=== PATIENT | female | born 1985 | race Caucasian/White ===

== ENCOUNTER 2020-12-05 15:10 | Emergency (ER) | payer MEDICAID, SELFPAY ==
[~2020-12-05] VITALS: Ht 165.1 cm; Wt 78.3 kg
[~2020-12-05 15:10] MED LIST: CIPR-249 PO; CLON-412 PO; DIFL150T PO; VIST25CA PO; ZOFR4TAB14 PO
[2020-12-05 15:11] VITALS: BP 162/93
[2020-12-05] MEDS ORDERED: INDO50CA91 PO (15:33)
== END 2020-12-05 18:33 | disposition left against medical advice (07) ==
LOC: M ED 15:10
DX: Z53.21 Procedure and treatment not carried out due to patient leaving prior to being seen by health care provider (principal)

== ENCOUNTER 2021-05-22 01:24 | Emergency (ER) | payer SELFPAY ==
[~2021-05-22] VITALS: Ht 165.1 cm; Wt 72.7 kg
[~2021-05-22 01:24] MED LIST changes: +INDO50CA91 PO
[2021-05-22 01:30] VITALS: BP 140/83
== END 2021-05-22 04:00 | disposition left against medical advice (07) ==
LOC: M ED 01:24
DX: Z53.21 Procedure and treatment not carried out due to patient leaving prior to being seen by health care provider (principal)

== ENCOUNTER → 2021-08-31 | Outpatient (CLI) | payer MEDICAID, OTHER ==
[2021-08-31 16:26] LABS: HEMATOCRIT 35.6 % (36.0-47.0); HEMOGLOBIN 12.5 g/dl (12.0-15.5); INR 0.94; MEAN CORPUSCULAR HEMOGLOBIN 33.8 pg (27.0-33.0); MEAN CORPUSCULAR HGB CONC 35.1 g/dl (32.0-36.5); MEAN CORPUSCULAR VOLUME 96.2 fl (80.0-96.0); PLATELET COUNT, AUTOMATED 312 10^3/uL (150-450); WHITE BLOOD COUNT 6.9 10^3/uL (4.0-10.0)
[2021-08-31 17:16] LABS: ALBUMIN 3.4 GM/DL (3.2-5.2); ALT/SGPT 65 U/L (12-78); BILIRUBIN,TOTAL 0.3 MG/DL (0.2-1.0); BLOOD UREA NITROGEN 13 MG/DL (7-18); CALCIUM LEVEL 8.7 MG/DL (8.5-10.1); CARBON DIOXIDE LEVEL 24 MEQ/L (21-32); CHLORIDE LEVEL 107 MEQ/L (98-107); CREATININE FOR GFR 0.81 MG/DL (0.55-1.30); GLOMERULAR FILTRATION RATE > 60.0 (>60); GLUCOSE, FASTING 121 MG/DL (70-100); HEPATITIS B SURFACE ANTIBODY NEGATIVE (POSITIVE); POTASSIUM SERUM 3.9 MEQ/L (3.5-5.1); SODIUM LEVEL 139 MEQ/L (136-145); TOTAL PROTEIN 7.4 GM/DL (6.4-8.2)
[2021-08-31 17:31] LABS: HEPATITIS B CORE ANTIBODY IGM NEGATIVE (NEGATIVE)
[2021-08-31 17:32] LABS: HIV 1&2 SCREEN CENTAUR NEGATIVE (NEGATIVE)
== END ==
LOC: M LAB 14:28
PROVIDERS: ATTEND Nurse Practitioner Family
DX: B18.2 Chronic viral hepatitis C (principal)

== ENCOUNTER 2021-11-24 17:30 | Emergency (ER) | payer OTHER ==
[~2021-11-24] VITALS: Ht 165.1 cm; Wt 77.3 kg
[2021-11-24 17:50] VITALS: BP 132/85
[2021-11-24] MEDS ORDERED: VENL37.598 PO (17:53)
[2021-11-24] MEDS ORDERED: GABA-282 PO (17:53)
[2021-11-24] MEDS ORDERED: BOOSTRIX/ADACEL VACCINE (DIPHTH/PERTUSS/ACELL/TETANUS) 0.5ML SYR IM ONE (19:20)
== END 2021-11-24 19:34 | disposition home or self-care (01) ==
LOC: M ED 17:30
DX: S01.01XA Laceration without foreign body of scalp, initial encounter (principal); S20.219A Contusion of unspecified front wall of thorax, initial encounter; S40.012A Contusion of left shoulder, initial encounter; S19.9XXA Unspecified injury of neck, initial encounter; Y04.8XXA Assault by other bodily force, initial encounter; Y99.0 Civilian activity done for income or pay; F41.9 Anxiety disorder, unspecified; Z86.19 Personal history of other infectious and parasitic diseases; F17.200 Nicotine dependence, unspecified, uncomplicated; Z91.040 Latex allergy status

== ENCOUNTER → 2021-12-21 | Outpatient (CLI) | payer OTHER ==
[~2021-12-21] MED LIST changes: +GABA-282 PO; +VENL37.598 PO
[2021-12-24 17:07] LABS: HEPATITIS C QUANTITATION 10900 IU/mL (.)
== END ==
LOC: M LAB 14:04
PROVIDERS: ATTEND Nurse Practitioner Family
DX: B18.2 Chronic viral hepatitis C (principal)

== ENCOUNTER 2022-01-11 10:47 | Emergency (ER) | payer OTHER ==
[~2022-01-11] VITALS: Ht 165.1 cm; Wt 77.3 kg
[2022-01-11] MEDS ORDERED: ONDA4TAB6 (10:57)
[2022-01-11] MEDS ORDERED: BUPR1FIL (10:57)
[2022-01-11 11:38] LABS: BASO % 0.5 % (0.0-1.0); EOS # 0.1 10^3/uL (0.0-0.5); EOS % 1.6 % (0.0-3.0); HEMATOCRIT 36.8 % (36.0-47.0); HEMOGLOBIN 12.1 g/dl (12.0-15.5); LYMPH # 1.8 10^3/uL (1.5-5.0); LYMPH % 29.8 % (24.0-44.0); MEAN CORPUSCULAR HEMOGLOBIN 32.3 pg (27.0-33.0); MEAN CORPUSCULAR HGB CONC 32.9 g/dl (32.0-36.5); MEAN CORPUSCULAR VOLUME 98.1 fl (80.0-96.0); MONO # 0.5 10^3/uL (0.0-0.8); NEUTROPHILS # 3.7 10^3/uL (1.5-8.5); NEUTROPHILS % 59.9 % (36.0-66.0); PLATELET COUNT, AUTOMATED 432 10^3/uL (150-450); RED BLOOD COUNT 3.75 10^6/uL (4.00-5.40); WHITE BLOOD COUNT 6.1 10^3/uL (4.0-10.0)
[2022-01-11 12:05] LABS: ERYTHROCYTE SEDIMENTATION RATE 28 mm/hr (0-20)
[2022-01-11 12:24] LABS: BLOOD UREA NITROGEN 13 MG/DL (7-18); C REACTIVE PROTEIN QUANTITATIV 0.33 MG/DL (0.00-0.30); CALCIUM LEVEL 9.7 MG/DL (8.5-10.1); CARBON DIOXIDE LEVEL 28 MEQ/L (21-32); CHLORIDE LEVEL 104 MEQ/L (98-107); CREATININE FOR GFR 0.69 MG/DL (0.55-1.30); GLOMERULAR FILTRATION RATE > 60.0 (>60); GLUCOSE, FASTING 119 MG/DL (70-100); SODIUM LEVEL 137 MEQ/L (136-145)
[2022-01-11] MEDS ORDERED: SULF1TAB23 PO (14:32)
[2022-01-11 14:34] LABS: URINE PREG TEST NEGATIVE (NEGATIVE)
[2022-01-11] MEDS ORDERED: PHENAZOPYRIDINE 100 MG TAB PO ONE (14:40)
[2022-01-11] MEDS ORDERED: BACTRIM 160MG/800MG DS TAB PO ONE (14:40)
[2022-01-11 14:49] VITALS: BP 144/92
== END 2022-01-11 14:59 | disposition home or self-care (01) ==
LOC: M ED 10:47
DX: N39.0 Urinary tract infection, site not specified (principal); F19.10 Other psychoactive substance abuse, uncomplicated; I82.611 Acute embolism and thrombosis of superficial veins of right upper extremity; L03.114 Cellulitis of left upper limb; L03.116 Cellulitis of left lower limb; L03.113 Cellulitis of right upper limb; Z86.16 Personal history of COVID-19; Z79.899 Other long term (current) drug therapy; Z91.040 Latex allergy status

== ENCOUNTER → 2022-06-26 | Outpatient (REF) | payer OTHER ==
[~2022-06-26] MED LIST changes: +BUPR1FIL; +ONDA4TAB6; +SULF1TAB23 PO
[2022-06-26 18:00] LABS: BASO % 0.5 % (0.0-1.0); EOS % 0.5 % (0.0-3.0); HEMATOCRIT 36.3 % (36.0-47.0); HEMOGLOBIN 12.2 g/dl (12.0-15.5); LYMPH # 2.1 10^3/uL (1.5-5.0); LYMPH % 25.5 % (24.0-44.0); MEAN CORPUSCULAR HGB CONC 33.6 g/dl (32.0-36.5); MEAN CORPUSCULAR VOLUME 98.1 fl (80.0-96.0); MONO # 0.6 10^3/uL (0.0-0.8); MONO % 7.4 % (2.0-8.0); NEUTROPHILS # 5.4 10^3/uL (1.5-8.5); NEUTROPHILS % 65.9 % (36.0-66.0); PLATELET COUNT, AUTOMATED 434 10^3/uL (150-450); WHITE BLOOD COUNT 8.3 10^3/uL (4.0-10.0)
[2022-06-26 18:09] LABS: LIPASE 16 U/L (12-53)
[2022-06-26 18:10] LABS: AMYLASE 24 U/L (30-118)
[2022-06-26 18:18] LABS: ALBUMIN 3.9 G/DL (3.2-5.2); ALKALINE PHOSPHATASE 72 U/L (46-116); ALT/SGPT 72 U/L (7.0-40); AST/SGOT 74 U/L (<34); BILIRUBIN,TOTAL 0.9 MG/DL (0.3-1.2); BLOOD UREA NITROGEN 18 MG/DL (9-23); CALCIUM LEVEL 9.2 MG/DL (8.5-10.1); CARBON DIOXIDE LEVEL 24 MMOL/L (20-31); CHLORIDE LEVEL 103 MMOL/L (98-107); CREATININE FOR GFR 0.57 MG/DL (0.55-1.30); GLOMERULAR FILTRATION RATE > 60.0 (>60); GLUCOSE, FASTING 97 MG/DL (60-100); SODIUM LEVEL 135 MMOL/L (136-145); TOTAL PROTEIN 7.7 G/DL (5.7-8.2)
[2022-06-28 13:08] LABS: HEPATITIS C QUANTITATION 631000 IU/mL (.)
== END ==
LOC: M LAB REF 16:48
PROVIDERS: ATTEND Family Medicine Addiction Medicine
DX: R10.9 Unspecified abdominal pain (principal); Z86.19 Personal history of other infectious and parasitic diseases

== ENCOUNTER 2022-07-01 15:26 | Emergency (ER) | payer OTHER ==
[~2022-07-01] VITALS: Ht 165.1 cm; Wt 86.4 kg
[2022-07-01 15:27] VITALS: BP 159/91
== END 2022-07-01 18:18 | disposition home or self-care (01) ==
LOC: M ED 15:26
DX: S86.112A Strain of other muscle(s) and tendon(s) of posterior muscle group at lower leg level, left leg, initial encounter (principal); X50.1XXA Overexertion from prolonged static or awkward postures, initial encounter; Y92.099 Unspecified place in other non-institutional residence as the place of occurrence of the external cause; Y93.39 Activity, other involving climbing, rappelling and jumping off; F41.9 Anxiety disorder, unspecified; F17.200 Nicotine dependence, unspecified, uncomplicated

== ENCOUNTER 2022-08-10 16:38 | Emergency (ER) | payer OTHER ==
[~2022-08-10] VITALS: Ht 165.1 cm; Wt 86.4 kg
[2022-08-10 18:05] LABS: BASO % 0.4 % (0.0-1.0); EOS # 0.2 10^3/uL (0.0-0.5); EOS % 1.8 % (0.0-3.0); HEMATOCRIT 36.7 % (36.0-47.0); HEMOGLOBIN 12.6 g/dl (12.0-15.5); LYMPH # 2.1 10^3/uL (1.5-5.0); LYMPH % 25.4 % (24.0-44.0); MEAN CORPUSCULAR HEMOGLOBIN 32.6 pg (27.0-33.0); MEAN CORPUSCULAR HGB CONC 34.3 g/dl (32.0-36.5); MEAN CORPUSCULAR VOLUME 94.8 fl (80.0-96.0); MONO # 0.4 10^3/uL (0.0-0.8); MONO % 5.1 % (2.0-8.0); NEUTROPHILS # 5.6 10^3/uL (1.5-8.5); NEUTROPHILS % 67.1 % (36.0-66.0); PLATELET COUNT, AUTOMATED 342 10^3/uL (150-450); RED BLOOD COUNT 3.87 10^6/uL (4.00-5.40); WHITE BLOOD COUNT 8.4 10^3/uL (4.0-10.0)
[2022-08-10 18:21] LABS: BLOOD UREA NITROGEN 9 MG/DL (9-23); CALCIUM LEVEL 8.8 MG/DL (8.5-10.1); CARBON DIOXIDE LEVEL 27 MMOL/L (20-31); CHLORIDE LEVEL 105 MMOL/L (98-107); CREATININE FOR GFR 0.54 MG/DL (0.55-1.30); GLOMERULAR FILTRATION RATE > 60.0 (>60); GLUCOSE, FASTING 75 MG/DL (60-100); POTASSIUM SERUM 4.2 MMOL/L (3.5-5.1); SODIUM LEVEL 137 MMOL/L (136-145)
[2022-08-10 18:36] LABS: HCG, SERUM QUANTITATIVE 7313.6 MIU/ML (<4.2)
[2022-08-10] MEDS ORDERED: RHOGAM 300MCG (1500IU) INJ IM ONE (20:00)
[2022-08-10 21:15] VITALS: BP 134/78
== END 2022-08-10 21:17 | disposition home or self-care (01) ==
LOC: M ED 16:38
DX: O20.0 Threatened abortion (principal); F17.200 Nicotine dependence, unspecified, uncomplicated; F19.10 Other psychoactive substance abuse, uncomplicated; Z91.040 Latex allergy status
CPT/HCPCS: 76801; 76817; 80048; 81001; 84702; 85025; 86850; 86900; 86901; 87086; 93976; 96372; 99283; J2790

== ENCOUNTER 2023-01-23 22:48 | Emergency (ER) | payer OTHER ==
[~2023-01-23] VITALS: Ht 167.6 cm; Wt 86.0 kg
[2023-01-24 01:49] LABS: BASO % 0.4 % (0.0-1.0); EOS # 0.2 10^3/uL (0.0-0.5); EOS % 1.8 % (0.0-3.0); HEMATOCRIT 28.8 % (36.0-47.0); HEMOGLOBIN 9.9 g/dl (12.0-15.5); LYMPH % 31.9 % (24.0-44.0); MEAN CORPUSCULAR HEMOGLOBIN 32.8 pg (27.0-33.0); MEAN CORPUSCULAR HGB CONC 34.4 g/dl (32.0-36.5); MEAN CORPUSCULAR VOLUME 95.4 fl (80.0-96.0); MONO # 0.7 10^3/uL (0.0-0.8); MONO % 7.7 % (2.0-8.0); NEUTROPHILS # 5.5 10^3/uL (1.5-8.5); NEUTROPHILS % 57.9 % (36.0-66.0); PLATELET COUNT, AUTOMATED 330 10^3/uL (150-450); RED BLOOD COUNT 3.02 10^6/uL (4.00-5.40); WHITE BLOOD COUNT 9.5 10^3/uL (4.0-10.0)
[2023-01-24 02:09] LABS: BLOOD UREA NITROGEN 14 MG/DL (9-23); CALCIUM LEVEL 8.7 MG/DL (8.5-10.1); CARBON DIOXIDE LEVEL 21 MMOL/L (20-31); CHLORIDE LEVEL 106 MMOL/L (98-107); CREATININE FOR GFR 0.55 MG/DL (0.55-1.30); GLOMERULAR FILTRATION RATE > 60.0 (>60); GLUCOSE, FASTING 103 MG/DL (60-100); POTASSIUM SERUM 4.8 MMOL/L (3.5-5.1); SODIUM LEVEL 137 MMOL/L (136-145)
[2023-01-24] MEDS ORDERED: NS 1,000 ML IV ONE (02:40)
[2023-01-24] MEDS ORDERED: RHOGAM 300MCG (1500IU) INJ IM ONE (02:45)
[2023-01-24] MEDS ORDERED: MORPHINE 4 MG/ML 1ML VIAL IV PRN (02:55)
[2023-01-24] MEDS ORDERED: ONDANSETRON 4MG 2ML VIAL IV ONE (02:55)
[2023-01-24 03:07] LABS: HCG, SERUM QUANTITATIVE 10483.2 MIU/ML (<4.2)
[2023-01-24 04:12] LABS: RSV AMPLIFICATION NEGATIVE (NEGATIVE)
[2023-01-24 05:57] VITALS: BP 109/68; TEMP 98; O2SAT 98
[2023-01-24 06:14] VITALS: BP 115/72; TEMP 98; O2SAT 98
[2023-01-24 06:50] VITALS: BP 126/76; TEMP 98.6
[2023-01-24 08:00] VITALS: BP 120/76; TEMP 97.4; O2SAT 98
[2023-01-24 09:53] LABS: HEMATOCRIT 33.3 % (36.0-47.0); HEMOGLOBIN 11.4 g/dl (12.0-15.5)
[2023-01-24] MEDS ORDERED: KETOROLAC 30 MG/ML 1ML VIAL IV ONE (10:05)
[2023-01-24] MEDS ORDERED: IBUP-1114 PO (10:09)
[2023-01-24 10:17] VITALS: BP 122/78; TEMP 97.2; O2SAT 99
== END 2023-01-24 10:36 | disposition home or self-care (01) ==
LOC: M ED 22:48 → EDBD 22:48 → M ED 01-24 10:36
DX: O03.4 Incomplete spontaneous abortion without complication (principal); D64.9 Anemia, unspecified; F17.200 Nicotine dependence, unspecified, uncomplicated; F19.10 Other psychoactive substance abuse, uncomplicated; Z79.1 Long term (current) use of non-steroidal anti-inflammatories (NSAID); Z91.040 Latex allergy status
CPT/HCPCS: 36430; 76801; 80048; 84702; 85014; 85018; 85025; 86850; 86900; 86901; 86920; 87631; 96372; 96374; 96375; 99285; J1885; J2405; J2790; P9016

== ENCOUNTER 2023-12-23 01:48 | Emergency (ER) | payer OTHER ==
[~2023-12-23 01:48] MED LIST changes: +IBUP-1114 PO; +ONDA-282; -ONDA4TAB6
[2023-12-23 02:21] LABS: BASO % 0.3 % (0.0-1.0); EOS # 0.1 10^3/uL (0.0-0.5); EOS % 0.4 % (0.0-3.0); HEMATOCRIT 33.6 % (36.0-47.0); HEMOGLOBIN 11.6 g/dl (12.0-15.5); LYMPH # 1.8 10^3/uL (1.5-5.0); LYMPH % 15.9 % (24.0-44.0); MEAN CORPUSCULAR HEMOGLOBIN 30.8 pg (27.0-33.0); MEAN CORPUSCULAR HGB CONC 34.5 g/dl (32.0-36.5); MEAN CORPUSCULAR VOLUME 89.1 fl (80.0-96.0); MONO # 0.7 10^3/uL (0.0-0.8); MONO % 6.4 % (2.0-8.0); NEUTROPHILS # 8.9 10^3/uL (1.5-8.5); NEUTROPHILS % 76.7 % (36.0-66.0); PLATELET COUNT, AUTOMATED 349 10^3/uL (150-450); RED BLOOD COUNT 3.77 10^6/uL (4.00-5.40); WHITE BLOOD COUNT 11.6 10^3/uL (4.0-10.0)
[2023-12-23 02:49] LABS: BARBITURATES URINE NEGATIVE (NEGATIVE); BENZODIAZEPINES URINE NEGATIVE (NEGATIVE); CANNABINOIDS URINE NEGATIVE (NEGATIVE); PHENCYCLIDINE URINE NEGATIVE (NEGATIVE)
[2023-12-23 02:51] LABS: ETHYL ALCOHOL (ETHANOL) 0.005 % (0.000-0.010)
[2023-12-23] MEDS: ACETAMINOPHEN *IV* 1,000 MG in IV 1 EA IV ONE (02:51)
[2023-12-23] MEDS: NS 1,000 ML IV ONE (02:51)
[2023-12-23 02:53] LABS: BLOOD UREA NITROGEN 14 MG/DL (9-23); CALCIUM LEVEL 8.8 MG/DL (8.5-10.1); CARBON DIOXIDE LEVEL 23 MMOL/L (20-31); CHLORIDE LEVEL 105 MMOL/L (98-107); CK-MB VALUE MASS < 1.0 NG/ML (<3.6); CPK CREATINE PHOSPHOKINASE 81 U/L (34-145); CREATININE FOR GFR 0.71 MG/DL (0.55-1.30); GLOMERULAR FILTRATION RATE > 60.0 (>60); GLUCOSE, FASTING 115 MG/DL (60-100); MB/CK RELATIVE INDEX 1.23 (< OR =4); POTASSIUM SERUM 3.3 MMOL/L (3.5-5.1); SODIUM LEVEL 132 MMOL/L (136-145)
[2023-12-23 03:10] LABS: AMPHETAMINES LEVEL URINE POSITIVE (NEGATIVE); COCAINE METABOLITE URINE POSITIVE (NEGATIVE); METHADONE URINE POSITIVE (NEGATIVE); OPIATES URINE POSITIVE (NEGATIVE)
[2023-12-23] MEDS: KETOROLAC 30 MG/ML 1ML VIAL IV ONE (03:38)
[2023-12-23] MEDS: cefTRIAXone SOD 1 GM in D5W MINI-BAG PLUS 50 ML IV ONE (03:48)
[2023-12-23 04:23] LABS: CK-MB VALUE MASS < 1.0 NG/ML (<3.6)
[2023-12-23 04:25] LABS: CPK CREATINE PHOSPHOKINASE 81 U/L (34-145); MB/CK RELATIVE INDEX 1.23 (< OR =4)
[2023-12-23 05:15] VITALS: BP 123/79; TEMP 98.2; O2SAT 96
[2023-12-23] MEDS ORDERED: DIFL200T PO (05:19)
[2023-12-23] MEDS ORDERED: CIPR-250 PO (05:19)
== END 2023-12-23 05:31 | disposition home or self-care (01) ==
LOC: M ED 01:48
DX: R07.9 Chest pain, unspecified (principal); N39.0 Urinary tract infection, site not specified; F19.10 Other psychoactive substance abuse, uncomplicated; R00.0 Tachycardia, unspecified; Z91.040 Latex allergy status; Z79.2 Long term (current) use of antibiotics; Z79.1 Long term (current) use of non-steroidal anti-inflammatories (NSAID); Z79.899 Other long term (current) drug therapy
CPT/HCPCS: 71045; 80048; 80307; 81001; 82077; 82550; 82553; 84484; 85025; 87088; 87186; 87486; 87581; 87633; 87798; 93005; 93041; 94760; 96365; 96375; 99285; J0131; J0696; J1885

== ENCOUNTER 2023-12-26 00:08 | Inpatient (IN) | payer OTHER ==
[~2023-12-26] VITALS: Ht 167.6 cm; Wt 78.0 kg
[~2023-12-26 00:08] MED LIST changes: +CIPR-250 PO; +DIFL200T PO
[2023-12-26 00:50] LABS: BASO % 0.3 % (0.0-1.0); HEMATOCRIT 32.2 % (36.0-47.0); HEMOGLOBIN 11.3 g/dl (12.0-15.5); LYMPH # 1.2 10^3/uL (1.5-5.0); LYMPH % 11.2 % (24.0-44.0); MEAN CORPUSCULAR HEMOGLOBIN 31.5 pg (27.0-33.0); MEAN CORPUSCULAR HGB CONC 35.1 g/dl (32.0-36.5); MEAN CORPUSCULAR VOLUME 89.7 fl (80.0-96.0); NEUTROPHILS # 8.7 10^3/uL (1.5-8.5); PLATELET COUNT, AUTOMATED 285 10^3/uL (150-450); RED BLOOD COUNT 3.59 10^6/uL (4.00-5.40)
[2023-12-26 01:06] LABS: INR 1.15; PARTIAL THROMBOPLASTIN TIME 31.1 SECONDS (24.8-34.2); PROTHROMBIN TIME 14.3 SECONDS (12.5-14.5)
[2023-12-26 01:14] LABS: AMYLASE 24 U/L (30-118)
[2023-12-26 01:15] LABS: ALBUMIN 2.9 G/DL (3.2-5.2); ALKALINE PHOSPHATASE 73 U/L (46-116); ALT/SGPT 15 U/L (7.0-40); AST/SGOT 12 U/L (<34); BILIRUBIN,DIRECT 0.2 MG/DL (<0.4); BILIRUBIN,TOTAL 0.5 MG/DL (0.3-1.2); BLOOD UREA NITROGEN 8 MG/DL (9-23); CALCIUM LEVEL 8.5 MG/DL (8.5-10.1); CARBON DIOXIDE LEVEL 25 MMOL/L (20-31); CHLORIDE LEVEL 105 MMOL/L (98-107); CREATININE FOR GFR 0.67 MG/DL (0.55-1.30); GLOMERULAR FILTRATION RATE > 60.0 (>60); GLUCOSE, FASTING 132 MG/DL (60-100); POTASSIUM SERUM 3.2 MMOL/L (3.5-5.1); SODIUM LEVEL 135 MMOL/L (136-145); TOTAL PROTEIN 6.8 G/DL (5.7-8.2)
[2023-12-26 01:22] LABS: PROCALCITONIN 0.22 ng/ml
[2023-12-26 01:29] LABS: AMORPHOUS SEDIMENT SMALL (NEGATIVE); APPEARANCE, URINE CLOUDY (CLEAR); BACTERIA, URINE AUTO NEGATIVE (NEGATIVE); BILIRUBIN, URINE AUTO NEGATIVE (NEGATIVE); BLOOD, URINE BLOOD NEGATIVE (NEGATIVE); COLOR, URINE AMBER (YELLOW); GLUCOSE, URINE (UA) AUTO NEGATIVE (NEGATIVE); KETONE, URINE AUTO TRACE mg/dL (NEGATIVE); LEUKOCYTE ESTERASE, URINE AUTO TRACE (NEGATIVE); MUCUS, URINE LARGE (NEGATIVE); NITRITE, URINE AUTO NEGATIVE (NEGATIVE); PROTEIN, URINE AUTO 1+ mg/dL (NEGATIVE); RBC, URINE AUTO 0 /HPF (0-3); SPECIFIC GRAVITY URINE AUTO 1.018 (1.002-1.035); SQUAMOUS EPITHELIAL CELL UR AU 24 /HPF (0-6); WBC, URINE AUTO 15 /HPF (0-3)
[2023-12-26 01:32] LABS: LIPASE 18 U/L (12-53)
[2023-12-26 01:33] LABS: CK-MB VALUE MASS < 1.0 NG/ML (<3.6)
[2023-12-26 01:34] LABS: CPK CREATINE PHOSPHOKINASE 54 U/L (34-145); MB/CK RELATIVE INDEX 1.85 (< OR =4)
[2023-12-26] MEDS ORDERED: ISOVUE-370 76% 100ML VIAL As Ordered ONE (05:49)
[2023-12-26] MEDS: PIPERACILLIN/TAZOBACTAM SOD 4.5 GM in D5W MINI-BAG PLUS 50 ML IV ONE (05:57)
[2023-12-26] MEDS: ACETAMINOPHEN TAB 650MG DOSE (2X325MG) PO ONE (07:28)
[2023-12-26] MEDS: KETOROLAC 30 MG/ML 1ML VIAL IV ONE (09:14)
[2023-12-26] MEDS ORDERED: BUPR8SUB SL (10:08)
[2023-12-26] MEDS ORDERED: IBUP-1720 PO (10:08)
[2023-12-26] MEDS ORDERED: NALO4SPR3 (10:08)
[2023-12-26] MEDS ORDERED: HOME MED LIST COMPLETE! XX SCH (10:10)
[2023-12-26] MEDS: POTASSIUM CHLORIDE 10MEQ SR TABLET PO ONE (10:41)
[2023-12-26] MEDS ORDERED: ACETAMINOPHEN TAB 650MG DOSE (2X325MG) PO PRN (13:35)
[2023-12-26] MEDS: PIPERACILLIN/TAZOBACTAM SOD 4.5 GM in D5W MINI-BAG PLUS 50 ML IV SCH (15:15)
[2023-12-26] MEDS: BUPRENORPHINE HCL 8MG SUBINGUAL TABLET SL SCH (16:00)
[2023-12-26] MEDS: VANCOMYCIN 1,500 MG/300 ML IV BAG *LOAD IV ONE (16:54)
[2023-12-26] MEDS: KETOROLAC 30 MG/ML 1ML VIAL IV PRN (16:56)
[2023-12-26 17:20] VITALS: BP 117/78; TEMP 97.9; O2SAT 98
[2023-12-26 21:09] VITALS: BP 122/76; TEMP 98.2; O2SAT 98
[2023-12-27] MEDS: METHOCARBAMOL 1,000 MG/10 ML VIAL IV ONE (00:15)
[2023-12-27] MEDS: ACETAMINOPHEN *IV* 1,000 MG in IV 1 EA IV ONE (00:15)
[2023-12-27] MEDS: VANCOMYCIN HCL 1,000 MG, VIAL MATE ADAPTER 1 EACH in D5W 250 ML IV SCH (01:00)
[2023-12-27 04:16] VITALS: BP 129/76; TEMP 97.7; O2SAT 96
[2023-12-27] MEDS: RIVAROXABAN 10MG TAB (XARELTO) PO SCH (08:38)
[2023-12-27] MEDS: carisoprodoL 350 MG TAB PO ONE (08:38)
[2023-12-27 12:00] VITALS: BP 150/99; TEMP 98.2; O2SAT 98
[2023-12-27 13:33] LABS: BASO # 0.1 10^3/uL (0.0-0.2); BASO % 0.5 % (0.0-1.0); EOS % 0.4 % (0.0-3.0); HEMATOCRIT 31.8 % (36.0-47.0); HEMOGLOBIN 10.9 g/dl (12.0-15.5); LYMPH # 1.3 10^3/uL (1.5-5.0); LYMPH % 11.7 % (24.0-44.0); MEAN CORPUSCULAR HGB CONC 34.3 g/dl (32.0-36.5); MEAN CORPUSCULAR VOLUME 90.3 fl (80.0-96.0); MONO # 1.2 10^3/uL (0.0-0.8); MONO % 10.5 % (2.0-8.0); NEUTROPHILS # 8.5 10^3/uL (1.5-8.5); NEUTROPHILS % 76.4 % (36.0-66.0); PLATELET COUNT, AUTOMATED 302 10^3/uL (150-450); RED BLOOD COUNT 3.52 10^6/uL (4.00-5.40); WHITE BLOOD COUNT 11.1 10^3/uL (4.0-10.0)
[2023-12-27 14:04] LABS: BLOOD UREA NITROGEN 5 MG/DL (9-23); CALCIUM LEVEL 8.3 MG/DL (8.5-10.1); CARBON DIOXIDE LEVEL 24 MMOL/L (20-31); CHLORIDE LEVEL 107 MMOL/L (98-107); CREATININE FOR GFR 0.58 MG/DL (0.55-1.30); GLOMERULAR FILTRATION RATE > 60.0 (>60); GLUCOSE, FASTING 123 MG/DL (60-100); MAGNESIUM LEVEL 1.9 MG/DL (1.8-2.4); POTASSIUM SERUM 3.6 MMOL/L (3.5-5.1); SODIUM LEVEL 137 MMOL/L (136-145)
[2023-12-27 16:00] VITALS: BP 111/81; TEMP 97.5; O2SAT 100
[2023-12-27] MEDS: carisoprodoL 350 MG TAB PO SCH (16:12)
[2023-12-27] MEDS: VANCOMYCIN 1,250 MG/250 ML IV BAG *LOAD IV ONE (19:22)
[2023-12-27 21:06] VITALS: BP 128/85; TEMP 97.8; O2SAT 100
[2023-12-28 04:35] VITALS: BP 122/76; TEMP 98; O2SAT 100
[2023-12-28 08:45] LABS: BASO % 0.4 % (0.0-1.0); EOS # 0.1 10^3/uL (0.0-0.5); EOS % 0.8 % (0.0-3.0); HEMATOCRIT 30.9 % (36.0-47.0); HEMOGLOBIN 10.7 g/dl (12.0-15.5); LYMPH # 2.2 10^3/uL (1.5-5.0); LYMPH % 20.1 % (24.0-44.0); MEAN CORPUSCULAR HEMOGLOBIN 31.2 pg (27.0-33.0); MEAN CORPUSCULAR HGB CONC 34.6 g/dl (32.0-36.5); MEAN CORPUSCULAR VOLUME 90.1 fl (80.0-96.0); MONO % 8.7 % (2.0-8.0); NEUTROPHILS # 7.7 10^3/uL (1.5-8.5); NEUTROPHILS % 69.5 % (36.0-66.0); PLATELET COUNT, AUTOMATED 310 10^3/uL (150-450); RED BLOOD COUNT 3.43 10^6/uL (4.00-5.40); WHITE BLOOD COUNT 11.1 10^3/uL (4.0-10.0)
[2023-12-28 09:17] LABS: VANCOMYCIN LEVEL TROUGH 9.6 UG/ML (10.0-20.0)
[2023-12-28 09:18] LABS: BLOOD UREA NITROGEN 7 MG/DL (9-23); CALCIUM LEVEL 8.5 MG/DL (8.5-10.1); CARBON DIOXIDE LEVEL 24 MMOL/L (20-31); CHLORIDE LEVEL 109 MMOL/L (98-107); CREATININE FOR GFR 0.56 MG/DL (0.55-1.30); GLOMERULAR FILTRATION RATE > 60.0 (>60); GLUCOSE, FASTING 105 MG/DL (60-100); POTASSIUM SERUM 3.6 MMOL/L (3.5-5.1); SODIUM LEVEL 139 MMOL/L (136-145)
[2023-12-28 12:00] VITALS: BP 145/102; TEMP 97.5; O2SAT 98
[2023-12-28] MEDS: VANCOMYCIN 1,250 MG/250 ML IV BAG IV SCH (17:24)
[2023-12-28] MEDS ORDERED: CEFA500C2 PO (20:59)
[2023-12-28] MEDS ORDERED: SOMA350T PO (21:12)
== END 2023-12-28 18:14 | disposition left against medical advice (07) | DRG 344 ==
LOC: M ED 00:08 → M ED INP 13:34 → M MSPAV 17:24
PROVIDERS: ADMIT Internal Medicine Nephrology; ATTEND Internal Medicine Nephrology
DX: M00.852 Arthritis due to other bacteria, left hip (principal); I26.90 Septic pulmonary embolism without acute cor pulmonale; R78.81 Bacteremia; N39.0 Urinary tract infection, site not specified; B95.61 Methicillin susceptible Staphylococcus aureus infection as the cause of diseases classified elsewhere; F14.10 Cocaine abuse, uncomplicated; F15.10 Other stimulant abuse, uncomplicated; Z91.040 Latex allergy status; J44.9 Chronic obstructive pulmonary disease, unspecified; F41.9 Anxiety disorder, unspecified; B19.20 Unspecified viral hepatitis C without hepatic coma; F17.200 Nicotine dependence, unspecified, uncomplicated

== ENCOUNTER 2024-01-26 10:57 | Inpatient (IN) | payer OTHER ==
[~2024-01-26] VITALS: Ht 165.1 cm; Wt 81.9 kg
[~2024-01-26 10:57] MED LIST changes: +BUPR8SUB SL; +CEFA500C2 PO; +GABA-1172 PO; -GABA-282 PO; +IBUP-1720 PO; +NALO4SPR3; +SOMA350T PO
[2024-01-26] MEDS ORDERED: FLUC10TA PO (11:15)
[2024-01-26] MEDS ORDERED: CLON-412 PO (11:15)
[2024-01-26] MEDS ORDERED: CIPR250T3 PO (11:15)
[2024-01-26 13:38] LABS: VENOUS BASE EXCESS -2.7 (-2.0-2.0); VENOUS O2 SATURATION 89.1 % (60.0-80.0); VENOUS PARTIAL PRESSURE CO2 33.3 mmHg (38.0-50.0); VENOUS PARTIAL PRESSURE O2 57.5 mmHg (30.0-50.0); VENOUS PH 7.418 UNITS (7.330-7.430); VENOUS STANDARD HCO3 22.1 MMOL/L
[2024-01-26 13:44] LABS: BASO # 0.1 10^3/uL (0.0-0.2); BASO % 0.4 % (0.0-1.0); EOS # 0.1 10^3/uL (0.0-0.5); EOS % 0.9 % (0.0-3.0); HEMATOCRIT 35.8 % (36.0-47.0); HEMOGLOBIN 12.1 g/dl (12.0-15.5); LYMPH # 3.8 10^3/uL (1.5-5.0); LYMPH % 29.3 % (24.0-44.0); MEAN CORPUSCULAR HEMOGLOBIN 30.5 pg (27.0-33.0); MEAN CORPUSCULAR HGB CONC 33.8 g/dl (32.0-36.5); MEAN CORPUSCULAR VOLUME 90.2 fl (80.0-96.0); MONO # 0.6 10^3/uL (0.0-0.8); MONO % 4.9 % (2.0-8.0); NEUTROPHILS # 8.1 10^3/uL (1.5-8.5); NEUTROPHILS % 62.6 % (36.0-66.0); PLATELET COUNT, AUTOMATED 515 10^3/uL (150-450); RED BLOOD COUNT 3.97 10^6/uL (4.00-5.40); WHITE BLOOD COUNT 12.8 10^3/uL (4.0-10.0)
[2024-01-26 13:56] LABS: INR 0.95; PARTIAL THROMBOPLASTIN TIME 30.4 SECONDS (24.8-34.2)
[2024-01-26 13:58] LABS: APPEARANCE, URINE CLOUDY (CLEAR); BACTERIA, URINE AUTO 1+ (NEGATIVE); BILIRUBIN, URINE AUTO NEGATIVE (NEGATIVE); BLOOD, URINE BLOOD NEGATIVE (NEGATIVE); COLOR, URINE YELLOW (YELLOW); GLUCOSE, URINE (UA) AUTO NEGATIVE (NEGATIVE); KETONE, URINE AUTO NEGATIVE (NEGATIVE); LEUKOCYTE ESTERASE, URINE AUTO 2+ (NEGATIVE); MUCUS, URINE SMALL (NEGATIVE); NITRITE, URINE AUTO NEGATIVE (NEGATIVE); PROTEIN, URINE AUTO NEGATIVE (NEGATIVE); RBC, URINE AUTO 11 /HPF (0-3); SPECIFIC GRAVITY URINE AUTO 1.019 (1.002-1.035); SQUAMOUS EPITHELIAL CELL UR AU 8 /HPF (0-6); UROBILINOGEN, URINE AUTO 0.2 mg/dL (0.0-2.0); WBC, URINE AUTO 18 /HPF (0-3)
[2024-01-26 14:12] LABS: C REACTIVE PROTEIN QUANTITATIV < 0.40 MG/DL (<1.0)
[2024-01-26 14:13] LABS: AMYLASE 64 U/L (30-118)
[2024-01-26 14:25] LABS: PROCALCITONIN <0.04 ng/ml
[2024-01-26 14:26] LABS: ALBUMIN 3.3 G/DL (3.2-5.2); ALKALINE PHOSPHATASE 86 U/L (35-104); ALT/SGPT 28 U/L (7.0-40); AST/SGOT 38 U/L (<34); BILIRUBIN,DIRECT < 0.1 MG/DL (<0.4); BILIRUBIN,TOTAL 0.2 MG/DL (0.3-1.2); BLOOD UREA NITROGEN 16 MG/DL (9-23); CALCIUM LEVEL 9.4 MG/DL (8.5-10.1); CARBON DIOXIDE LEVEL 24 MMOL/L (20-31); CHLORIDE LEVEL 110 MMOL/L (98-107); CREATININE FOR GFR 0.63 MG/DL (0.55-1.30); GLOMERULAR FILTRATION RATE > 60.0 (>58); GLUCOSE, FASTING 83 MG/DL (60-100); POTASSIUM SERUM 5.1 MMOL/L (3.5-5.1); SODIUM LEVEL 140 MMOL/L (136-145); TOTAL PROTEIN 7.7 G/DL (5.7-8.2)
[2024-01-26] MEDS ORDERED: ISOVUE-370 76% 100ML VIAL As Ordered ONE (15:18)
[2024-01-26] MEDS: VANCOMYCIN/WATER FOR INJ (PEG) 1,500 MG in IV 1 EA IV ONE (17:03)
[2024-01-26] MEDS: ACETAMINOPHEN 500 MG TAB PO ONE (17:40)
[2024-01-26] MEDS ORDERED: ACET300T48 PO (18:22)
[2024-01-26] MEDS ORDERED: HOME MED LIST COMPLETE! XX SCH (18:25)
[2024-01-26] MEDS: MORPHINE 2 MG/ML 1ML VIAL IV ONE (22:34)
[2024-01-26] MEDS: ONDANSETRON 4MG 2ML VIAL IV ONE (22:34)
[2024-01-27 00:09] VITALS: BP 139/90; TEMP 98.1; O2SAT 96
[2024-01-27] MEDS: SCOPOLAMINE 1MG TRANSDERMAL PATCH TOP ONE (00:46)
[2024-01-27] MEDS: VANCOMYCIN 1,250 MG/250 ML IV BAG IV SCH (00:47)
[2024-01-27 04:29] VITALS: BP 158/87; TEMP 98.5; O2SAT 97
[2024-01-27 07:25] LABS: HEMATOCRIT 37.1 % (36.0-47.0); HEMOGLOBIN 12.7 g/dl (12.0-15.5); MEAN CORPUSCULAR HEMOGLOBIN 30.2 pg (27.0-33.0); MEAN CORPUSCULAR HGB CONC 34.2 g/dl (32.0-36.5); MEAN CORPUSCULAR VOLUME 88.1 fl (80.0-96.0); PLATELET COUNT, AUTOMATED 542 10^3/uL (150-450); RED BLOOD COUNT 4.21 10^6/uL (4.00-5.40); WHITE BLOOD COUNT 14.2 10^3/uL (4.0-10.0)
[2024-01-27] MEDS: ACETAMINOPHEN 325 MG TAB PO PRN (07:30)
[2024-01-27 07:51] LABS: ALBUMIN 3.5 G/DL (3.2-5.2); ALKALINE PHOSPHATASE 91 U/L (35-104); ALT/SGPT 27 U/L (7.0-40); AST/SGOT 10 U/L (<34); BILIRUBIN,TOTAL 0.4 MG/DL (0.3-1.2); BLOOD UREA NITROGEN 9 MG/DL (9-23); CALCIUM LEVEL 9.8 MG/DL (8.5-10.1); CARBON DIOXIDE LEVEL 22 MMOL/L (20-31); CHLORIDE LEVEL 107 MMOL/L (98-107); CREATININE FOR GFR 0.56 MG/DL (0.55-1.30); GLOMERULAR FILTRATION RATE > 60.0 (>58); GLUCOSE, FASTING 108 MG/DL (60-100); POTASSIUM SERUM 4.1 MMOL/L (3.5-5.1); SODIUM LEVEL 136 MMOL/L (136-145)
[2024-01-27 08:23] VITALS: BP 142/76; TEMP 97.9; O2SAT 99
[2024-01-27] MEDS: KETOROLAC 30 MG/ML 1ML VIAL IV ONE (12:13)
[2024-01-27] MEDS: ONDANSETRON 4MG 2ML VIAL IV PRN (12:13)
[2024-01-27] MEDS ORDERED: PILL CUTTER 1 EACH XX ONE (12:14)
[2024-01-27] MEDS: cloNIDine 0.1MG TABLET PO SCH (12:16)
[2024-01-27 12:20] VITALS: BP 173/98; TEMP 98.6; O2SAT 99
[2024-01-27 16:23] LABS: HEPATITIS B SURFACE ANTIBODY NEGATIVE (POSITIVE)
[2024-01-27 16:35] LABS: HEPATITIS B SURFACE ANTIGEN NEGATIVE (NEGATIVE)
[2024-01-27] MEDS: ceFAZolin SOD 2 GM in IV 1 EA IV SCH (16:36)
[2024-01-27] MEDS: BUPRENORPHINE HCL 8MG SUBINGUAL TABLET SL SCH (16:36)
[2024-01-27 16:45] VITALS: BP 108/67; TEMP 98; O2SAT 98
[2024-01-27 16:48] LABS: HIV 1&2 SCREEN NEGATIVE (NEGATIVE)
[2024-01-27 20:50] VITALS: BP 100/59; TEMP 97.1; O2SAT 98
[2024-01-28 00:20] VITALS: BP 90/60; TEMP 97.4; O2SAT 98
[2024-01-28 01:15] LABS: AMPHETAMINES LEVEL URINE NEGATIVE (NEGATIVE)
[2024-01-28 01:16] LABS: BARBITURATES URINE NEGATIVE (NEGATIVE); BENZODIAZEPINES URINE NEGATIVE (NEGATIVE); CANNABINOIDS URINE NEGATIVE (NEGATIVE); COCAINE METABOLITE URINE NEGATIVE (NEGATIVE); METHADONE URINE NEGATIVE (NEGATIVE); PHENCYCLIDINE URINE NEGATIVE (NEGATIVE)
[2024-01-28 01:17] LABS: OPIATES URINE POSITIVE (NEGATIVE)
[2024-01-28 04:06] VITALS: BP 100/78; TEMP 97.5; O2SAT 99
[2024-01-28 05:04] LABS: BASO # 0.1 10^3/uL (0.0-0.2); BASO % 0.6 % (0.0-1.0); EOS # 0.2 10^3/uL (0.0-0.5); EOS % 1.7 % (0.0-3.0); HEMATOCRIT 35.2 % (36.0-47.0); HEMOGLOBIN 11.8 g/dl (12.0-15.5); LYMPH # 3.6 10^3/uL (1.5-5.0); LYMPH % 38.4 % (24.0-44.0); MEAN CORPUSCULAR HEMOGLOBIN 29.9 pg (27.0-33.0); MEAN CORPUSCULAR HGB CONC 33.5 g/dl (32.0-36.5); MEAN CORPUSCULAR VOLUME 89.3 fl (80.0-96.0); MONO # 0.5 10^3/uL (0.0-0.8); MONO % 5.8 % (2.0-8.0); NEUTROPHILS # 4.9 10^3/uL (1.5-8.5); NEUTROPHILS % 53.1 % (36.0-66.0); PLATELET COUNT, AUTOMATED 456 10^3/uL (150-450); RED BLOOD COUNT 3.94 10^6/uL (4.00-5.40); WHITE BLOOD COUNT 9.3 10^3/uL (4.0-10.0)
[2024-01-28 05:49] LABS: CALCIUM LEVEL 9.6 MG/DL (8.5-10.1); CARBON DIOXIDE LEVEL 23 MMOL/L (20-31); CHLORIDE LEVEL 105 MMOL/L (98-107); CREATININE FOR GFR 0.87 MG/DL (0.55-1.30); GLOMERULAR FILTRATION RATE > 60.0 (>58); GLUCOSE, FASTING 120 MG/DL (60-100); POTASSIUM SERUM 3.9 MMOL/L (3.5-5.1); SODIUM LEVEL 136 MMOL/L (136-145)
[2024-01-28 05:50] LABS: BLOOD UREA NITROGEN 17 MG/DL (9-23)
[2024-01-28 07:40] VITALS: BP 104/82; TEMP 97.8; O2SAT 98
[2024-01-28 12:39] VITALS: BP 90/68; TEMP 97.7; O2SAT 98
[2024-01-28] MEDS: ACETAMINOPH W/CODEINE #3 TAB UD PO PRN (12:50)
[2024-01-28] MEDS: LR 1,000 ML IV SCH (16:20)
[2024-01-28 16:26] VITALS: BP 91/53; TEMP 98.2; O2SAT 98
[2024-01-28 20:00] VITALS: TEMP 97.4; O2SAT 98
[2024-01-29] VITALS: BP 97/60; TEMP 97; O2SAT 98
[2024-01-29 04:00] VITALS: BP 118/74; TEMP 98; O2SAT 99
[2024-01-29 07:36] LABS: BASO # 0.1 10^3/uL (0.0-0.2); BASO % 0.9 % (0.0-1.0); EOS # 0.2 10^3/uL (0.0-0.5); EOS % 2.6 % (0.0-3.0); HEMATOCRIT 34.1 % (36.0-47.0); HEMOGLOBIN 11.1 g/dl (12.0-15.5); LYMPH # 3.2 10^3/uL (1.5-5.0); LYMPH % 38.9 % (24.0-44.0); MEAN CORPUSCULAR HEMOGLOBIN 30.1 pg (27.0-33.0); MEAN CORPUSCULAR HGB CONC 32.6 g/dl (32.0-36.5); MEAN CORPUSCULAR VOLUME 92.4 fl (80.0-96.0); MONO # 0.6 10^3/uL (0.0-0.8); MONO % 7.5 % (2.0-8.0); NEUTROPHILS # 4.1 10^3/uL (1.5-8.5); NEUTROPHILS % 49.7 % (36.0-66.0); PLATELET COUNT, AUTOMATED 403 10^3/uL (150-450); RED BLOOD COUNT 3.69 10^6/uL (4.00-5.40); WHITE BLOOD COUNT 8.2 10^3/uL (4.0-10.0)
[2024-01-29 07:44] VITALS: BP 117/69; TEMP 97.8; O2SAT 99
[2024-01-29 08:02] LABS: BLOOD UREA NITROGEN 18 MG/DL (9-23); CALCIUM LEVEL 9.1 MG/DL (8.5-10.1); CARBON DIOXIDE LEVEL 26 MMOL/L (20-31); CHLORIDE LEVEL 108 MMOL/L (98-107); CREATININE FOR GFR 0.66 MG/DL (0.55-1.30); GLOMERULAR FILTRATION RATE > 60.0 (>58); GLUCOSE, FASTING 101 MG/DL (60-100); POTASSIUM SERUM 4.4 MMOL/L (3.5-5.1); SODIUM LEVEL 138 MMOL/L (136-145)
[2024-01-29 13:14] VITALS: BP 121/79; O2SAT 99
[2024-01-29] MEDS ORDERED: CLON-412 PO (15:22)
[2024-01-29 16:05] VITALS: BP 125/84
[2024-01-29] MEDS: cloNIDine 0.1MG TABLET PO ONE (16:05)
[2024-01-29 16:06] VITALS: BP 125/84; TEMP 98.3; O2SAT 99
== END 2024-01-29 16:15 | DRG 306 ==
LOC: M ED 10:57 → M ED INP 17:37 → M PCU 01-27 00:07
PROVIDERS: ADMIT Hospitalist; ATTEND Student in an Organized Health Care Education/Training Program
DX: I38 Endocarditis, valve unspecified (principal); I26.90 Septic pulmonary embolism without acute cor pulmonale; F11.20 Opioid dependence, uncomplicated; B18.2 Chronic viral hepatitis C; F17.200 Nicotine dependence, unspecified, uncomplicated; J44.9 Chronic obstructive pulmonary disease, unspecified; F41.9 Anxiety disorder, unspecified; Z91.040 Latex allergy status; E66.9 Obesity, unspecified; F14.10 Cocaine abuse, uncomplicated; F15.10 Other stimulant abuse, uncomplicated; Z79.899 Other long term (current) drug therapy; B95.61 Methicillin susceptible Staphylococcus aureus infection as the cause of diseases classified elsewhere

== ENCOUNTER 2024-01-29 14:56 | Outpatient (CLI) | payer OTHER ==
[~2024-01-29 14:56] MED LIST changes: +ACET300T48 PO; +CIPR250T3 PO; +FLUC10TA PO
[2024-01-29] MEDS ORDERED: CLON-412 PO (15:22)
[2024-01-29] MEDS: DALBAVANCIN 1,500 MG in D5W 250 ML IV ONE (16:22)
== END 2024-01-29 17:30 | disposition home or self-care (01) ==
LOC: M OPCLIPCU 14:56 → M PCU 14:57 → M OPCLIPCU 17:30
PROVIDERS: ATTEND Student in an Organized Health Care Education/Training Program
DX: I38 Endocarditis, valve unspecified (principal); I26.90 Septic pulmonary embolism without acute cor pulmonale; B18.2 Chronic viral hepatitis C; B95.61 Methicillin susceptible Staphylococcus aureus infection as the cause of diseases classified elsewhere; F19.10 Other psychoactive substance abuse, uncomplicated; Z91.040 Latex allergy status
CPT/HCPCS: 96365; J0875

== ENCOUNTER 2024-02-06 14:55 | Outpatient (CLI) | payer OTHER ==
[~2024-02-06] VITALS: Ht 165.1 cm; Wt 81.8 kg
[~2024-02-06 14:55] MED LIST changes: +NALO4SPR20; -NALO4SPR3
[2024-02-06 15:10] VITALS: BP 131/76; O2SAT 100
[2024-02-06] MEDS: DALBAVANCIN 1,500 MG in D5W 250 ML IV ONE (16:03)
[2024-02-06 16:40] VITALS: BP 138/86; O2SAT 99
== END 2024-02-06 16:45 ==
LOC: M INFU 14:55
PROVIDERS: ATTEND Student in an Organized Health Care Education/Training Program
DX: I33.9 Acute and subacute endocarditis, unspecified (principal); Z91.040 Latex allergy status
CPT/HCPCS: 96365; J0875

== ENCOUNTER 2025-03-02 13:21 | Emergency (ER) | payer OTHER ==
[~2025-03-02 13:21] MED LIST changes: +SULF-7 PO; -SULF1TAB23 PO
[2025-03-02] MEDS ORDERED: METH10CO3 PO (13:48)
== END 2025-03-02 13:22 | disposition admitted as inpatient to this hospital (09) ==
LOC: M ED 13:21
DX: Z53.21 Procedure and treatment not carried out due to patient leaving prior to being seen by health care provider (principal)

== ENCOUNTER 2025-03-02 13:24 | Inpatient (IN) | payer OTHER ==
[2025-03-02] VITALS (8 sets, daily range): BP systolic 126–166; BP diastolic 82–96; TEMP 97.5; O2SAT 97–100
[~2025-03-02] VITALS: Ht 165.1 cm; Wt 80.5 kg
[2025-03-02] MEDS ORDERED: METH10CO3 PO (13:48)
[2025-03-02] MEDS ORDERED: CARBOPROST TROMETHAMINE 250 MCG/ML AMP IM PRN (13:50)
[2025-03-02] MEDS ORDERED: TRANEXAMIC ACID INJection 1,000 MG in NS 100 ML IV PRN (13:50)
[2025-03-02] MEDS ORDERED: OXYTOCIN INJ 10UNITS/ML 1ML VIAL IM PRN (13:50)
[2025-03-02] MEDS ORDERED: OXYTOCIN DRIP 30 UNITS in IV 1 EA IV PRN (13:50)
[2025-03-02] MEDS ORDERED: METHYLERGONOVINE MALEATE 0.2 MG/ML 1 ML VIAL IM PRN (13:50)
[2025-03-02] MEDS ORDERED: LIDOCAINE 1% MDV 20 ML VIAL INFIL PRN (13:50)
[2025-03-02] MEDS ORDERED: ONDANSETRON 4MG/2ML VIAL As Ordered ONE (14:25)
[2025-03-02] MEDS ORDERED: KETOROLAC 30 MG/ML 1 ML VIAL As Ordered ONE (14:26)
[2025-03-02] MEDS ORDERED: OXYTOCIN INJ 10UNITS/ML 1ML VIAL As Ordered ONE (14:26)
[2025-03-02] MEDS ORDERED: PHENYLEPHRINE 10MG/ML 1ML VIAL As Ordered ONE (14:29)
[2025-03-02 14:42] LABS: PLATELET COUNT, AUTOMATED 347 10^3/uL (150-450)
[2025-03-02] MEDS ORDERED: MORPHINE PRES-FREE INJ 10 MG/10 ML VIAL As Ordered ONE (14:55)
[2025-03-02] MEDS: BICITRA 30 ML SOLN UDC PO ONE (15:16)
[2025-03-02] MEDS: ceFAZolin SODIUM 2 GM in DEXTROSE 5% (D5W) ADV/MINI-BAG 50 ML IV ONE (15:16)
[2025-03-02] MEDS: LR 1,000 ML IV SCH ×2 (15:16→17:05)
[2025-03-02 15:17] LABS: HIV 1&2 SCREEN NEGATIVE (NEGATIVE)
[2025-03-02 15:36] LABS: AMPHETAMINES LEVEL URINE NEGATIVE (NEGATIVE); BARBITURATES URINE NEGATIVE (NEGATIVE); BENZODIAZEPINES URINE NEGATIVE (NEGATIVE); CANNABINOIDS URINE NEGATIVE (NEGATIVE); METHADONE URINE NEGATIVE (NEGATIVE); PHENCYCLIDINE URINE NEGATIVE (NEGATIVE)
[2025-03-02 15:37] LABS: COCAINE METABOLITE URINE POSITIVE (NEGATIVE); OPIATES URINE POSITIVE (NEGATIVE)
[2025-03-02 15:37] LABS: HEPATITIS C VIRUS ABY INDEX > 11.00 INDEX (<0.8)
[2025-03-02 16:05] LABS: Trichomonas vaginalis (AMP) POSITIVE (NEGATIVE)
[2025-03-02 16:34] LABS: CORD GAS ABE V -3.8; CORD GAS HCO3 V 21.0 MMOL/L; CORD GAS O2 SAT V 73.9 %; CORD GAS PCO2 V 37.8 mmHg; CORD GAS PH V 7.363 UNITS; CORD GAS PO2 V 29.8 mmHg; CORD GAS SBC V 20.8 MMOL/L; CORD GAS TCO2 V 22.2 MMOL/L
[2025-03-02 16:36] LABS: CORD GAS ABE A -2.8; CORD GAS HCO3 A 23.6 MMOL/L; CORD GAS O2 SAT A 28.5 %; CORD GAS PCO2 A 47.1 mmHg; CORD GAS PH A 7.318 UNITS; CORD GAS PO2 A 13.2 mmHg; CORD GAS SBC A 20.4 MMOL/L; CORD GAS TCO2 A 25.1 MMOL/L
[2025-03-02 16:40] LABS: GC DNA AMPLIFICATION NEGATIVE (NEGATIVE)
[2025-03-02] MEDS ORDERED: **NOTE PATIENT COMMENT** MISC XX SCH (17:05)
[2025-03-02] MEDS ORDERED: HYDROmorphone 2 MG TAB PO PRN (17:05)
[2025-03-02] MEDS ORDERED: CALCIUM CARBONATE 500 MG CHEW U/D PO PRN (17:05)
[2025-03-02] MEDS ORDERED: NALOXONE INJ 0.4 MG/1 ML VIAL IV PRN ×2 (17:05)
[2025-03-02] MEDS ORDERED: diphenhydrAMINE 50 MG/ML VIAL IV PRN (17:05)
[2025-03-02] MEDS: SLF 3 ML SYR IV SCH (17:05)
[2025-03-02] MEDS ORDERED: ONDANSETRON 4MG/2ML VIAL IV PRN ×3 (17:05)
[2025-03-02] MEDS ORDERED: MOM 30 ML SUSPENSION UDC PO PRN (17:05)
[2025-03-02] MEDS: OXYTOCIN DRIP 30 UNITS in IV 1 EA IV PRN (17:19)
[2025-03-02] MEDS ORDERED: PILL CUTTER 1 EACH XX PRN (17:50)
[2025-03-02] MEDS: DOCUSATE SODIUM 100 MG CAPSULE PO SCH (20:08)
[2025-03-02] MEDS: METHADONE 10 MG TAB PO SCH (20:08)
[2025-03-02] MEDS: KETOROLAC 30 MG/ML 1 ML VIAL IV SCH (20:09)
[2025-03-03] VITALS (9 sets, daily range): BP systolic 96–184; BP diastolic 53–98; TEMP 97.4–97.6; O2SAT 95–99
[2025-03-03] MEDS: HYDROmorphone 2 MG TAB PO PRN (00:47)
[2025-03-03] MEDS: FERROUS SULFATE 325 MG TAB PO SCH (08:39)
[2025-03-03] MEDS: PRENATAL VITAMINS CHEWABLE TABLET PO SCH (08:39)
[2025-03-03 10:06] LABS: PLATELET COUNT, AUTOMATED 349 10^3/uL (150-450)
[2025-03-03] MEDS ORDERED: NALOXONE INJ 0.4 MG/1 ML VIAL IV PRN (12:45)
[2025-03-03] MEDS: LABETALOL 200 MG TAB PO STA (14:26)
[2025-03-03] MEDS: IBUPROFEN 800 MG TAB PO SCH (17:38)
[2025-03-03] MEDS: LABETALOL 200 MG TAB PO SCH (21:00)
[2025-03-03] MEDS: RHOGAM 300MCG (1500IU) INJ IM ONE (21:33)
[2025-03-04] VITALS (7 sets, daily range): BP systolic 123–142; BP diastolic 58–86; O2SAT 97–100
[2025-03-04] MEDS: MEASLES,MUMPS,RUBELLA VACCINE INJ (MMR-II) SC.IMMUN ONE (09:00)
[2025-03-05 02:14] VITALS: BP 130/61; O2SAT 98
[2025-03-05 05:19] VITALS: BP 125/61; O2SAT 98
[2025-03-05] MEDS: SIMETHICONE 80MG CHEW TAB PO PRN (11:00)
[2025-03-05] MEDS: ACETAMINOPHEN 500 MG TAB PO PRN (11:00)
[2025-03-05 14:00] VITALS: BP 137/79; O2SAT 95
[2025-03-05] MEDS: NICOTINE 21 MG/24 HR 1 EA TRANSDERMAL TD SCH (17:00)
[2025-03-05 18:00] VITALS: BP 126/72; O2SAT 98
[2025-03-06 02:10] VITALS: BP 132/68; O2SAT 96
[2025-03-06 05:20] VITALS: BP 131/73; O2SAT 97
[2025-03-06 14:00] VITALS: BP 130/83; O2SAT 98
[2025-03-06] MEDS: NICOTINE 21 MG/24 HR 1 EA TRANSDERMAL TD SCH (17:00)
[2025-03-06 18:00] VITALS: BP 142/82; O2SAT 98
[2025-03-06 21:00] VITALS: BP 146/85
[2025-03-06 22:00] VITALS: BP 128/78; O2SAT 96
[2025-03-07 06:00] VITALS: BP 127/78; O2SAT 98
[2025-03-07] MEDS ORDERED: ACET-683 PO (07:45)
[2025-03-07] MEDS ORDERED: IBUP80TA PO (07:45)
[2025-03-07] MEDS ORDERED: METR-265 PO (10:08)
[2025-03-07 18:52] LABS: HCV RNA log10 7.09 Log IU/mL (NOT DETECTED)
== END 2025-03-07 12:10 | disposition home or self-care (01) | DRG 540 ==
LOC: M LDO 13:24 → M LDI 13:44 → M OBS 18:24
PROVIDERS: ADMIT Advanced Practice Midwife; ATTEND Advanced Practice Midwife
PROC: 10D00Z1 Extraction of Products of Conception, Low, Open Approach (ICD-10-PCS; principal; 2025-03-02 16:47)
DX: O34.211 Maternal care for low transverse scar from previous cesarean delivery (principal); Z37.0 Single live birth; Z3A.41 41 weeks gestation of pregnancy; O48.0 Post-term pregnancy; O09.523 Supervision of elderly multigravida, third trimester; F14.90 Cocaine use, unspecified, uncomplicated; O99.324 Drug use complicating childbirth; F17.200 Nicotine dependence, unspecified, uncomplicated; O99.334 Smoking (tobacco) complicating childbirth; Z79.899 Other long term (current) drug therapy; O09.31 Supervision of pregnancy with insufficient antenatal care, first trimester; O09.32 Supervision of pregnancy with insufficient antenatal care, second trimester; O09.33 Supervision of pregnancy with insufficient antenatal care, third trimester; B18.2 Chronic viral hepatitis C; O98.42 Viral hepatitis complicating childbirth; Z91.040 Latex allergy status